=== PATIENT | male | born 1985 | race Caucasian/White ===

== ENCOUNTER 2024-12-28 20:43 | Emergency (ER) | payer MEDICAID, OTHER ==
[~2024-12-28] VITALS: Ht 190.5 cm; Wt 107.9 kg
--- NOTE | 2024-12-28 20:57 | ELECTROCARDIOGRAPH REPORT ---
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 Crow Mercado Measurements Intervals [place] Rate: 126 P: 41 OR: 135 QRS: 91 QRSD: 104 T: -25 QT: 308 QTc: 446 Interpretive Statements Sinus tachycardia Inferior infarct, age indeterminate Lateral leads are also involved Baseline wander in lead(s) V6 Electronically Signed On 12-29-2024 12:04:[address] Crow Mercado Please click the below link to view image of tracing.
--- NOTE | 2024-12-28 21:05 | Physician Documentation ---
History of Present Illness ~ Chief Complaint: Facial Swelling Stated Complaint: FACIAL SWELLING Time Seen by MD: 22:40 Primary Medical Doctor: NONE HPI Went year old male reports to the emergency department for evaluation of right- sided facial swelling x3 days. Patient reports that his has been giving him antibiotics as she ordered off the Internet. Reports the swelling has increasing gotten worse since that time. Patient reports that he was also recently diagnosed with AFib and feels like his chest hurts but may be due to his rib pain as he fell a couple of days ago onto a fan. Patient denies any shortness of breath or substernal chest pain at this time. Patient reports he has felt like he had a fever and chills recently. Tetanus Within 5 Years: Yes Past Medical History Past Medical History: No Pertinent History Past Surgical History: appendectomy Lives In: Home Review of Systems All Other Systems at this time: Reviewed and Negative Physical Exam Vital Signs: Temperature: 98.6, Source: Oral, Heart Rate: 130, Respiratory Rate: 20, BP: 126/106, Pulse Oximetry: 96, Weight: 107.900 Oxygen Flow Rate: 0 Physical Exam HEENT: PERRL, moist oral mucosa, EOMI; + right sided facial swelling, + poor dentition Pulmonary: No respiratory distress MSK: no deformity Skin: w/d/i, no rash Neuro: alert, nonfocal Psych: normal affect Progress Results/Orders Results/Orders Completed Orders - NAVYA PARTIDA MD Amoxicillin Capsule (Trimox Capsule) (12/28/24 22:45) Vital Signs 12/28/24 12/28/24 20:45 22:41 Temp 98.6 98.0 Pulse 130 102 Resp 20 16 B/P (MAP) 126/106 106/69 (81) Pulse Ox 96 98 O2 Flow Rate 0 Laboratory Tests Test 12/28/24 21:14 White Blood Count 8.4 Red Blood Count 4.58 L Hemoglobin 13.8 L Hematocrit 39.5 L Mean Corpuscular Volume 86.3 Mean Corpuscular Hemoglobin 30.1 Mean Corpuscular Hemoglobin Concent 34.9 Red Cell Distribution Width 14.0 Platelet Count 260 Mean Platelet Volume 7.9 Neutrophils (%) (Auto) 79.2 H Lymphocytes (%) (Auto) 10.2 L Monocytes (%) (Auto) 8.7 Eosinophils (%) (Auto) 1.3 Basophils (%) (Auto) 0.6 Neutrophils # (Auto) 6.7 Lymphocytes # (Auto) 0.9 L Monocytes # (Auto) 0.7 Eosinophils # (Auto) 0.1 Basophils # (Auto) 0.1 CBC Comment Sodium Level 136 Potassium Level 3.7 Chloride Level 103 Carbon Dioxide Level 22.3 L Anion Gap 11 Blood Urea Nitrogen 17 Creatinine 1.65 H Estimated GFR/1.73 m2 46 BUN/Creatinine Ratio 10.3 Glucose Level 121 H Lactic Acid Level 1.6 Calcium Level 8.8 Troponin I High Sensitivity 4 Pro-B-Type Natriuretic Peptide 219 H Albumin 3.5 Procalcitonin 1.08 H Chemistry Comments Medical Decision Making Findings 39 year old male as above with facial swelling likely from dental abscess of R upper canine. Tachycardic but regular, likely 2/2 methamphetamine. Rx ABx and return precautions. Additional Comment Ddx = dental abscess, methamphetamine intoxication, sinus tachycardia, sepsis, dental caries, atrial fibrillation Departure Disposition: 01 HOME / SELF CARE / HOMELESS Impression: Primary Impression: Dental abscess Condition: Stable Discharge Instructions: Abscess, Dental Referrals: NO PRIMARY CARE PROVIDER (PCP) Prescriptions Clindamycin HCl (Clindamycin HCl CAPSULE) 150 Mg Capsule 2 CAP PO BID for 10 Days, #40 CAP Prov: NAVYA PARTIDA MD 12/28/24 Education Educated: Patient Educated regarding: diagnosis, treatment, prognosis, need for follow up Signature Scribe Signature: . Attestation: . FERNANDO DUMONT Dec 28, 2024 21:05 NAVYA PARTIDA MD Dec 28, 2024 22:47
[2024-12-28 21:23] LABS: MEAN PLATELET VOLUME 7.9 FL (7.4-10.4); RED CELL DISTRIBUTION WIDTH 14.0 % (11.5-14.5)
[2024-12-28 21:44] LABS: CREATININE 1.65 MG/DL (0.60-1.10); TOTAL CARBON DIOXIDE 22.3 MMOL/L (24-32)
[2024-12-28 21:45] LABS: PRO BRAIN NATRIURETIC PEPTIDE 219 PG/ML (0-125); eCRCL 70 ML/MIN; eGFR 46 ML/MIN
--- NOTE | 2024-12-28 21:49 | RADIOLOGY REPORT ---
CHEST RADIOGRAPH Indication: CP Technique: Single frontal view of the chest was obtained Comparison: None FINDINGS: Lines and Tubes: None Lungs: No focal consolidation. Pleura: No effusion. No pneumothorax. Cardiomediastinal contours: Unremarkable Bones: Question left t6 posterior rib fracture. IMPRESSION: 1. No acute cardiopulmonary disease. 2. Question left t6 posterior rib fracture.
[2024-12-28 22:41] VITALS: BP 106/69; PULSE 102; RESP 16; TEMP 98; O2SAT 98
[2024-12-28] MEDS ORDERED: CLIN-214 PO (22:52)
== END 2024-12-28 23:07 | disposition home or self-care (01) ==
LOC: ER 20:43
DX: K04.7 Periapical abscess without sinus (principal); I48.91 Unspecified atrial fibrillation; Z90.49 Acquired absence of other specified parts of digestive tract
CPT/HCPCS: 36415; 71045; 80048; 83605; 83880; 84145; 84484; 85025; 87040; 93005; 99285